=== PATIENT | female | born 1990 | race Caucasian/White ===

== ENCOUNTER 2021-12-10 10:38 | Emergency (ER) | payer SELFPAY ==
[2021-12-10] MEDS ORDERED: Sodium Chloride 0.9% 10 ML Syringe FLUSH PRN (10:43)
[2021-12-10] MEDS ORDERED: fentaNYL 100 MCG/2 ML SDV IVPUSH ONE (11:10)
[2021-12-10] MEDS ORDERED: Sodium Chloride 0.9% 10 ML Syringe FLUSH ONE (12:03)
[2021-12-10] MEDS ORDERED: Sodium Chloride 0.9% 50 ML IV SCH (12:15)
[2021-12-10] MEDS ORDERED: Iopamidol 612 MG/ML 100 ML Bottle IV SCH (12:15)
[2021-12-10] MEDS ORDERED: oxyCODONE 5 MG Tab PO ONE (13:26)
== END 2021-12-10 13:57 | disposition home or self-care (01) ==
LOC: JP.ED 10:38
DX: K52.9 Noninfective gastroenteritis and colitis, unspecified (principal); R74.8 Abnormal levels of other serum enzymes
CPT/HCPCS: 36415; 74177; 80048; 80076; 81001; 81025; 83690; 85025; 86140; 96374; 99284; A9270; J3010